=== PATIENT | male | born 1975 | race Caucasian/White ===

== ENCOUNTER → 2019-04-22 | Day surgery (SDC) | payer OTHER ==
[2019-04-20 12:18] LABS: BASOPHILS # (AUTO) 0.1 (0.0-0.1); EOSINOPHILS # (AUTO) 0.4 (0.0-0.4); EOSINOPHILS % 5.7 % (0.0-6.0); HEMATOCRIT 51.7 % (38.2-49.6); HEMOGLOBIN 17.6 g/dL (14.0-18.0); LYMPHOCYTES % 31.7 % (18.0-39.1); MEAN CORPUSCULAR HEMOGLOBIN 34.2 pg (28-32); MEAN CORPUSCULAR VOLUME 100.6 fL (81-99); MONOCYTES # (AUTO) 0.4 (0.2-0.8); MONOCYTES % 5.7 % (4.4-11.3); NEUTROPHILS # (AUTO) 3.4 (2.1-6.9); NEUTROPHILS % 55.6 % (38.7-80.0); PLATELET COUNT 231 x10e3/uL (140-360); RED BLOOD COUNT 5.14 x10e6/uL (4.3-5.7); RED CELL DISTRIBUTION WIDTH 14.9 % (11.7-14.4)
[2019-04-20 12:30] LABS: INR 0.99; PROTHROMBIN TIME 13.6 seconds (11.9-14.5)
[2019-04-20 12:37] LABS: ALANINE AMINOTRANSFERASE 46 IU/L (0-55); ALBUMIN 3.8 g/dL (3.5-5.0); ALBUMIN/GLOBULIN RATIO 1.2 (0.8-2.0); ALKALINE PHOSPHATASE 94 IU/L (40-150); ANION GAP 13.2 mmol/L (8-16); BLOOD UREA NITROGEN 5 mg/dL (7-26); BUN/CREATININE RATIO 7 (6-25); CARBON DIOXIDE 25 mmol/L (22-29); CHLORIDE 102 mmol/L (98-107); CREATININE, SERUM 0.75 mg/dL (0.72-1.25); EST GLOMERULAR FILTRATION RATE > 60 ML/MIN (60-); GLUCOSE 102 mg/dL (74-118); POTASSIUM 4.2 mmol/L (3.5-5.1); SODIUM 136 mmol/L (136-145)
[2019-04-22] VITALS (16 sets, daily range): BP systolic 117–149; BP diastolic 58–97
[~2019-04-22] VITALS: Ht 182.9 cm; Wt 83.9 kg
[~2019-04-22] MED LIST: ASPIR 8181 MG PO; FENTANYL CITRATE/PF 100MCG/2 ML INJ ONE; HEPARIN SOD/SOD CHLORIDE 2,000 ML ONE; IOPAMIDOL 300MG/ML 100 ML INFUS..BTL IV ONE; LIDOCAINE HCL 2% LOCAL 20 ML VIAL ONE; MIDAZOLAM HCL 2 MG/2 ML VIAL ONE; MORPHINE SULFATE INJ 4 MG/ML INJ 1ML ONE; SODIUM CHLORIDE 0.9% 1000ML 1,000 ML ONE; XARELTO20 MG PO
--- NOTE | 2019-04-22 09:52 | NUR ---
0952 Bedside report received from Reynaldo VINCENT.Identiferx2. Alert oriented and appropriate, PERRLA, respirations even and unlabored to room air. Pulses x4 extremities equal and strong. Pedal pulses PT/DP none, Peripheral Dr Wilson required surgical Intervention . Dr Wilson will f/o. Recheck 0ffice 2wks. Bilateral sheath intact No gross issues pain ,pallor, pressure or dysrhythmia Skin warm and dry integrity appears D/I. IV 20g to left wrist Iv controller 1t 100cchr, presents healthy w/o s/s of infiltration or complaint. Abdomen soft and supple. pt offered toileting, denies need to urinate or defecate. No personal articles with pt.Katelyn significant other at bedside Dr Wilson spoke to with all Will obtain CD for surgeon. Currently w/o complaint of pain or need. ds/rn Addendum: 04/22/19 at 1545 by Sylvia Hirsch RN [id number] Error in documentation PPx4 not present. aware , toes do nigel.Pt has surgical consult
--- NOTE | 2019-04-22 10:24 | NUR ---
1024a Nely ct mri technologist at bedside Bilateral femoral pulses not present. Feet cool denies pain. b/p 131/94 [place] 76 93%sat Initial left fem sheath pull started 1025am b/p 124/84 [place] 75 94%sat 1030am b/p 124/97 [place] 74 95% sat 1039am b/p 132/79 [place] 75 Stasis Left leg Ana M patch in place (14min)at 1040am 97% sat 1043am b/p 132/79 [place] 69 second pull rt leg Manual pressure Nely technologist infectious disease 97%sat 1045am B/p 132/79 [place] 73 97%sat 1050am B/p 131/95 [place] 72 96% sat 1053am B/p147/93 77 97 stasis achieved Ana M in place ds/rn
--- NOTE | 2019-04-22 10:53 | NUR ---
1053am Stasis achieved 2nd site Ana M in place No gross issues pain pallor pressure or dysthrhmia. NO hematoma bilateral or oozing to groin site. DC planning completed for dc at 1500pm. feliz/rn
--- NOTE | 2019-04-22 11:46 | NUR ---
1146 c/o back pain 5/10 difficult to tolerate pain with flat time till 3pm. Morphine 4mg iv slowly given with immediate relief noted.No further issues pain pallor pressure or dysrhythmia.Bilateral Ana M dressing dry and intact since stasis at 1053am. dc planning discussed. Copies of lab reports and dc plans CD transferred to surgical consult by MD piper/rn
--- NOTE | 2019-04-22 12:30 | NUR ---
Family remain at bedside no c/o extensive pain to low back. 11/15 no pain to groin Groin sheath pull sitesx2 stable. ds/rn
--- NOTE | 2019-04-22 13:22 | Operative Report ---
DATE OF PROCEDURE: SURGEON: Arthur Wilson DO PROCEDURES PERFORMED: 1. Conscious sedation, 30 minutes. 2. Abdominal aortography. 3. Bilateral extremity angiography. 4. Ultrasound-guided arterial access. PREPROCEDURE DIAGNOSIS: Severe peripheral artery disease. POSTPROCEDURE DIAGNOSIS: Aortoiliac occlusion. ESTIMATED BLOOD LOSS: Less than 10 mL. SPECIMENS REMOVED: None. PROCEDURE IN DETAIL: After informed consent was obtained, the patient was brought to the cardiac catheterization laboratory in a fasting and nonsedated state. Bilateral groins were prepped and draped in the usual sterile fashion. Using ultrasound guidance, the left common femoral artery was accessed via modified Seldinger technique and a 5-Angolan sheath was placed. Unilateral extremity angiography was then performed, which showed complete occlusion of the iliac on the left. Next, I gained access into the right common femoral artery with a 5-Angolan sheath and diagnostic imaging revealed a 99% occlusion of the external iliac. I was able to cross into the abdominal aorta with a Glidewire and abdominal aortography revealed a distal infrarenal aortoiliac occlusion. The distal vessels fill via collaterals from the inferior mesenteric artery and bridging collaterals. The distal tibial vessels have severe diffuse disease versus significant runoff given the lack of forward flow into the distal extremities. Hemostasis was achieved via manual pressure. The patient tolerated the procedure well with no immediate complications and transported back to his room in stable condition. IMPRESSION: Aortoiliac occlusion. RECOMMENDATIONS: Referred for Vascular Surgery. Arthur Wilson DO BM/MODL /[id number]
--- NOTE | 2019-04-22 15:00 | NUR ---
1500p Pt meets DC criteria. Bilateral Ana M site dry and intact. No pedal pulses pt for surgical consult.Md shared CD and info with assessed for s/s of complication and presence of hematoma. Warm, dry, no discolor, and pulses present. IV removed from left wrist site. Distal tip appears intact. VS WNL. Pt denies pain, sob, or need at this time. Significant other at bedside Review of discharge paperwork and follow up instructions. verbalized understanding. Pt to wheelchair and transported to front of hospital. Transferred to private vehicle under own strength w/o incident with DC paperwork in hand. ds/rn
== END | disposition home or self-care (01) ==
LOC: CATH LAB 07:36
PROVIDERS: ATTEND Internal Medicine Cardiovascular Disease
DX: I70.219 Atherosclerosis of native arteries of extremities with intermittent claudication, unspecified extremity (principal); I74.09 Other arterial embolism and thrombosis of abdominal aorta; Z01.812 Encounter for preprocedural laboratory examination; Z79.02 Long term (current) use of antithrombotics/antiplatelets; Z79.82 Long term (current) use of aspirin; Z86.718 Personal history of other venous thrombosis and embolism; Z82.49 Family history of ischemic heart disease and other diseases of the circulatory system
CPT/HCPCS: 36200; 36415; 75630; 76937; 80053; 85025; 85610; C1769 ×2; J2001; J2250; J2270; J3010; J7030; Q9967